=== PATIENT | female | born 1985 | race Caucasian/White ===

== ENCOUNTER 2017-11-16 19:03 | Emergency (ER) | payer SELFPAY ==
[~2017-11-16] VITALS: Ht 167.6 cm; Wt 95.5 kg
[2017-11-16 19:27] VITALS: BP 143/94
== END 2017-11-17 00:30 | disposition left against medical advice (07) ==
LOC: EMS 19:05
DX: S00.11XA Contusion of right eyelid and periocular area, initial encounter (principal); F17.210 Nicotine dependence, cigarettes, uncomplicated; F12.90 Cannabis use, unspecified, uncomplicated; Z53.21 Procedure and treatment not carried out due to patient leaving prior to being seen by health care provider; W21.9XXA Striking against or struck by unspecified sports equipment, initial encounter; Y93.89 Activity, other specified; Y92.89 Other specified places as the place of occurrence of the external cause; Y99.8 Other external cause status